=== PATIENT | male | born 1945 | race Caucasian/White ===

== ENCOUNTER → 2025-03-01 | Day surgery (SDC) | payer MEDICARE, BC ==
[~2025-03-01] MED LIST: ACETAMINOPHEN 1000 MG/100 ML 100 ML IV ONE; ALLOPURINOL300 MG PO; CLOPIDOGREL75 MG PO; CREON PO; DEXAMETHASONE SOD PHOS INJ 4 MG/ML SDV ONE; ENTRESTO 97 MG1 EACH PO; EPHEDRINE SULFATE INJ 50 MG/ML VIAL ONE; FAMOTIDINE 20 MG/2 ML VIAL IV ONE; FENTANYL CITRATE/PF 100MCG/2 ML INJ ONE; FUROSEMIDE40 MG PO; HYDROCODON-ACE1 EA11 PO; LIDOCAINE HCL 2% LOCAL INJ 5 ML SDV VIAL INJ ONE; LIPITOR10 MG PO; METOPROLOL SUCC50 MG PO; ONDANSETRON HCL INJ 2MG/ML 2ML 2 MG/ML VIAL ONE; OXYBUTYNIN CHLOR5 M1 PO; PROPOFOL IV EMULSION 10 MG/ML 20 ML VIAL ONE; SERTRALINE HCL50 MG PO; SPIRONOLACTONE25 MG PO; SYNTHROID125 MCG PO; VITAMIN D350 MC1 PO; XARELTO10 MG PO
[2025-03-01] MEDS: LACTATED RINGER'S 1,000 ML ONE (06:22)
[2025-03-01 06:36] LABS: INR 0.89
[2025-03-01 09:45] VITALS: BP 112/57; PULSE 63; RESP 14; O2SAT 96
== END | disposition home or self-care (01) ==
LOC: OR 05:23
PROVIDERS: ATTEND Plastic Surgery
DX: M72.0 Palmar fascial fibromatosis [Dupuytren] (principal); K85.90 Acute pancreatitis without necrosis or infection, unspecified; I25.10 Atherosclerotic heart disease of native coronary artery without angina pectoris; I11.0 Hypertensive heart disease with heart failure; I50.9 Heart failure, unspecified; E78.5 Hyperlipidemia, unspecified; I25.2 Old myocardial infarction; E03.9 Hypothyroidism, unspecified; M06.9 Rheumatoid arthritis, unspecified; M10.9 Gout, unspecified; F32.A Depression, unspecified; Z88.6 Allergy status to analgesic agent; Z88.8 Allergy status to other drugs, medicaments and biological substances; Z79.02 Long term (current) use of antithrombotics/antiplatelets; Z79.899 Other long term (current) drug therapy; Z86.73 Personal history of transient ischemic attack (TIA), and cerebral infarction without residual deficits
CPT/HCPCS: 26123; 26125; 36415; 85610; 85730; 88304; J0131; J0690; J1100; J1308; J2003; J2405; J2704; J3010; J7121